=== PATIENT | male | born 1960 | race Caucasian/White ===

== ENCOUNTER 2019-03-28 20:45 | Inpatient (IN) | payer OTHER ==
[2019-03-28 21:09] LABS: Allen Test ACCEPTAB; MODE ROOM AIR; MetHgb Venous 0.2 %; Sample Type Blood venous; Site VENOUS LINE; Venous COHb 2.5 %; Venous Fraction OxyHgb 66.8 %; Venous Oxygen Sat 68.7 mmHG (55.0-75.0); Venous Total Hemglobin 15.5 g/dl
[2019-03-28] MEDS: SOD CHLORIDE 0.9% 750 ML IV (21:12)
[2019-03-28 21:18] LABS: ADD MAN DIFF? NO
[2019-03-28 21:21] LABS: BASOPHILS % 0.3 % (0.0-2.0); EOSINOPHILS % 0.5 % (0.0-7.0); HEMATOCRIT 43.2 % (42.0-52.0); HEMOGLOBIN 14.7 g/dl (14.0-18.0); LYMPHOCYTES % 33.2 % (15.0-51.0); MEAN CORPUSCULAR VOLUME 91.1 fl (82.0-101.0); MEAN PLATELET VOLUME 11.7 fl (7.4-10.4); MONOCYTE # 0.4 10^3/ul (0.3-0.9); MONOCYTES % 6.7 % (0.0-11.0); NEUTROPHIL # 3.5 10^3/ul (1.6-7.5); NEUTROPHILS % 58.6 % (39.0-77.0); PLATELET COUNT 153 10^3/UL (140-415); RED BLOOD COUNT 4.74 10^6/ul (4.70-6.10); RED CELL DISTRIBUTION WIDTH 11.9 % (11.5-14.5)
[2019-03-28 21:38] LABS: ANION GAP 31 (5-13); BLOOD UREA NITROGEN 22 mg/dl (7-20); CALCIUM 9.2 mg/dl (8.4-10.2); CARBON DIOXIDE 16 mmol/L (21-31); CHLORIDE 80 mmol/L (97-110); Estimated GFR 48 mL/min (>60); MAGNESIUM 2.1 mg/dl (1.7-2.5); PHOSPHORUS 4.3 mg/dl (2.5-4.9); POTASSIUM 3.5 mmol/L (3.5-5.1); SODIUM 127 mmol/L (135-144)
[2019-03-28 21:50] LABS: GLUCOSE 835 mg/dl (70-220)
[2019-03-28] MEDS ORDERED: NS + KCL 30 MEQ 1,000 ML IV (22:08)
[2019-03-28] MEDS ORDERED: D10/0.45% NACL + KCL 30 MEQ 1,000 ML IV ×2 (22:08→22:12)
[2019-03-28 22:22] LABS: ADD UMIC NO; UR ASCORBIC ACID NEGATIVE (NEGATIVE); UR BILIRUBIN (Dip) NEGATIVE (NEGATIVE); UR BLOOD (Dip) NEGATIVE (NEGATIVE); UR CLARITY CLEAR (CLEAR); UR COLOR STRAW (YELLOW); UR GLUCOSE (Dip) 3+ mg/dL (NEGATIVE); UR KETONES (Dip) 2+ mg/dL (NEGATIVE); UR LEUKOCYTE ESTERASE (Dip) NEGATIVE Leu/ul (NEGATIVE); UR NITRITE (Dip) NEGATIVE (NEGATIVE); UR SPECIFIC GRAVITY (Dip) 1.017 (1.003-1.030); UR TOTAL PROTEIN (Dip) NEGATIVE (NEGATIVE); UR UROBILINOGEN (Dip) NEGATIVE (NEGATIVE)
[2019-03-28] MEDS ORDERED: INSULIN REGULAR, HUMAN 100 UNIT in SOD CHLORIDE 0.9% 100 ML IV (22:30)
[2019-03-28] MEDS ORDERED: DEXTROSE 50% 50 ML SYRINGE IV ×4 (22:30)
[2019-03-28] MEDS ORDERED: LACTATED RINGER'S 750 ML IV (22:30)
[2019-03-28] MEDS: LACTATED RINGER'S 750 ML IV (22:34)
[2019-03-28 23:17] LABS: HEMOGLOBIN A1C > 14.0 % (0-5.9)
[2019-03-29 00:02] LABS: MODE ROOM AIR; MetHgb Venous 0.2 %; Sample Type Blood venous; Site VENOUS LINE; Venous COHb 1.6 %; Venous Fraction OxyHgb 57.7 %; Venous Oxygen Sat 58.8 mmHG (55.0-75.0); Venous Total Hemglobin 15.5 g/dl
[2019-03-29] MEDS: INSULIN REGULAR, HUMAN 100 UNIT in SOD CHLORIDE 0.9% 100 ML IV (00:06)
[2019-03-29] MEDS: NS + KCL 30 MEQ 1,000 ML IV (00:09)
[2019-03-29 00:46] LABS: ANION GAP 26 (5-13); BLOOD UREA NITROGEN 20 mg/dl (7-20); CALCIUM 8.9 mg/dl (8.4-10.2); CARBON DIOXIDE 18 mmol/L (21-31); CHLORIDE 83 mmol/L (97-110); CREATININE 1.27 mg/dl (0.61-1.24); Estimated GFR 58 mL/min (>60); PHOSPHORUS 3.8 mg/dl (2.5-4.9); POTASSIUM 3.5 mmol/L (3.5-5.1); SODIUM 127 mmol/L (135-144)
[2019-03-29 01:19] LABS: GLUCOSE 716 mg/dl (70-220)
[2019-03-29] MEDS ORDERED: NS + KCL 40 MEQ 1,000 ML IV (01:23)
[2019-03-29] MEDS ORDERED: NS + KCL 30 MEQ 1,000 ML IV (01:23)
[2019-03-29] MEDS: SODIUM PHOSPHATE 30 MMOL in SOD CHLORIDE 0.9% 250 ML IV (01:23)
[2019-03-29] MEDS: CALCIUM GLUCONATE 10% 2 GM in SOD CHLORIDE 0.9% 100 ML IVPB (01:23)
[2019-03-29] MEDS ORDERED: SOD CHLORIDE 0.9% 1,000 ML IV (01:23)
[2019-03-29] MEDS: CALCIUM GLUCONATE 10% 1 GM in SOD CHLORIDE 0.9% 100 ML IVPB (01:23)
[2019-03-29] MEDS: SODIUM PHOSPHATE 15 MMOL in SOD CHLORIDE 0.9% 250 ML IV (01:23)
[2019-03-29] MEDS ORDERED: DEXTROSE 10%/0.45% NACL 1,000 ML IV (01:23)
[2019-03-29] MEDS: MAGNESIUM SULFATE 2 GM/50 ML 50 ML IVPB (01:30)
[2019-03-29] MEDS ORDERED: POTASSIUM CHLORIDE 50 ML IVPB (01:30)
[2019-03-29] MEDS ORDERED: INSULIN REGULAR, HUMAN 100 UNIT in SOD CHLORIDE 0.9% 100 ML IV (01:30)
[2019-03-29] MEDS: MAGNESIUM SULFATE 1 GM/D5W 100 ML IVPB (01:30)
[2019-03-29] MEDS ORDERED: DEXTROSE 50% 50 ML SYRINGE IV ×4 (01:30→19:30)
[2019-03-29] MEDS: D10/0.45% NACL + KCL 30 MEQ 1,000 ML IV (02:21)
[2019-03-29 02:39] LABS: MODE ROOM AIR; MetHgb Venous 0.3 %; Sample Type Blood venous; Site VENOUS LINE; Venous COHb 1.2 %; Venous Fraction OxyHgb 78.4 %; Venous Oxygen Sat 79.6 mmHG (55.0-75.0); Venous Total Hemglobin 16.6 g/dl
[2019-03-29 04:41] LABS: ANION GAP 10 (5-13); BLOOD UREA NITROGEN 11 mg/dl (7-20); CARBON DIOXIDE 16 mmol/L (21-31); CHLORIDE 112 mmol/L (97-110); CREATININE 0.55 mg/dl (0.61-1.24); Estimated GFR > 60 mL/min (>60); GLUCOSE 272 mg/dl (70-220); MAGNESIUM 1.2 mg/dl (1.7-2.5); PHOSPHORUS 0.9 mg/dl (2.5-4.9); SODIUM 138 mmol/L (135-144)
[2019-03-29 04:48] LABS: POTASSIUM 1.9 mmol/L (3.5-5.1)
[2019-03-29 04:49] LABS: CALCIUM 5.4 mg/dl (8.4-10.2)
[2019-03-29 04:52] LABS: TROPONIN-I 0.025 ng/ml (0.000-0.120)
[2019-03-29] MEDS: D10/0.45% NACL + KCL 40 MEQ 1,000 ML IV (05:37)
[2019-03-29 06:16] LABS: MODE ROOM AIR; MetHgb Venous 0.8 %; Sample Type Blood venous; Site VENOUS LINE; Venous COHb 0.4 %; Venous Fraction OxyHgb 77.8 %; Venous Oxygen Sat 78.7 mmHG (55.0-75.0); Venous Total Hemglobin 6.5 g/dl
[2019-03-29 06:23] LABS: TROPONIN-I 0.018 ng/ml (0.000-0.120)
[2019-03-29 07:23] LABS: ANION GAP 4 (5-13); BLOOD UREA NITROGEN 5 mg/dl (7-20); CHLORIDE 131 mmol/L (97-110); CREATININE 0.24 mg/dl (0.61-1.24); Estimated GFR > 60 mL/min (>60); GLUCOSE 104 mg/dl (70-220); SODIUM 143 mmol/L (135-144)
[2019-03-29 07:34] LABS: CALCIUM 2.4 mg/dl (8.4-10.2); CARBON DIOXIDE 8 mmol/L (21-31); MAGNESIUM 0.6 mg/dl (1.7-2.5); PHOSPHORUS < 0.5 mg/dl (2.5-4.9); POTASSIUM < 1.0 mmol/L (3.5-5.1)
[2019-03-29] MEDS: POTASSIUM CHLORIDE (SR) 20 MEQ TAB PO ×4 (07:38→15:00)
[2019-03-29 07:48] LABS: ANION GAP 15 (5-13); BLOOD UREA NITROGEN 15 mg/dl (7-20); CALCIUM 8.9 mg/dl (8.4-10.2); CARBON DIOXIDE 22 mmol/L (21-31); CHLORIDE 96 mmol/L (97-110); CREATININE 0.71 mg/dl (0.61-1.24); Estimated GFR > 60 mL/min (>60); GLUCOSE 273 mg/dl (70-220); MAGNESIUM 1.8 mg/dl (1.7-2.5); PHOSPHORUS 1.7 mg/dl (2.5-4.9); SODIUM 133 mmol/L (135-144)
[2019-03-29 07:50] LABS: POTASSIUM 2.9 mmol/L (3.5-5.1)
[2019-03-29] MEDS: NPH, HUMAN INSULIN ISOPHANE 3ML VIAL SC ×3 (08:20→21:16)
[2019-03-29 10:21] LABS: MODE ROOM AIR; MetHgb Venous 0.2 %; Sample Type Blood venous; Site OTHER; Venous COHb 0.1 %; Venous Fraction OxyHgb 92.6 %; Venous Oxygen Sat 92.9 mmHG (55.0-75.0); Venous Total Hemglobin 12.6 g/dl
[2019-03-29 10:49] LABS: ANION GAP 8 (5-13); BLOOD UREA NITROGEN 12 mg/dl (7-20); CALCIUM 7.2 mg/dl (8.4-10.2); CARBON DIOXIDE 23 mmol/L (21-31); CHLORIDE 102 mmol/L (97-110); CREATININE 0.65 mg/dl (0.61-1.24); Estimated GFR > 60 mL/min (>60); MAGNESIUM 1.4 mg/dl (1.7-2.5); PHOSPHORUS 1.2 mg/dl (2.5-4.9); POTASSIUM 3.3 mmol/L (3.5-5.1); SODIUM 133 mmol/L (135-144)
[2019-03-29 10:53] LABS: GLUCOSE 441 mg/dl (70-220)
[2019-03-29] MEDS: INSULIN ASPART [NOVOLOG] 3 ML PEN SC ×4 (12:14→21:16)
[2019-03-29] MEDS: ACCU-CHEK XX ×5 (13:27→21:04)
[2019-03-29 13:52] LABS: ANION GAP 9 (5-13); BLOOD UREA NITROGEN 11 mg/dl (7-20); CALCIUM 7.7 mg/dl (8.4-10.2); CARBON DIOXIDE 21 mmol/L (21-31); CHLORIDE 104 mmol/L (97-110); CREATININE 0.62 mg/dl (0.61-1.24); Estimated GFR > 60 mL/min (>60); GLUCOSE 307 mg/dl (70-220); MAGNESIUM 1.6 mg/dl (1.7-2.5); PHOSPHORUS 1.4 mg/dl (2.5-4.9); POTASSIUM 3.9 mmol/L (3.5-5.1); SODIUM 134 mmol/L (135-144)
[2019-03-29] MEDS ORDERED: MAGNESIUM SULFATE 2 GM/50 ML 50 ML IVPB (15:00)
[2019-03-29 15:18] LABS: URINE BLOOD (Dip) POC Negative (NEGATIVE); URINE KETONES (Dip) POC 2+ (NEGATIVE); URINE LEUKOCYTE EST (Dip) POC Negative (NEGATIVE); URINE NITRITE (Dip) POC Negative (NEGATIVE); URINE TOTAL PROTEIN POC Negative (NEGATIVE)
[2019-03-29 15:18] LABS: URINE PH (Dip) POC 5.5 (5.0-8.5)
[2019-03-29] MEDS: SOD CHLORIDE 0.9% 1,000 ML IV (17:18)
[2019-03-29] MEDS: SODIUM PHOSPHATE 15 MMOL in SOD CHLORIDE 0.9% 250 ML IVPB (17:35)
[2019-03-29] MEDS ORDERED: GLUCOSE GEL 15 GRAM TUBE PO ×2 (19:30)
[2019-03-29] MEDS ORDERED: GLUCAGON 1 MG INJ IM (19:30)
[2019-03-29] MEDS ORDERED: GLUCOSE GEL 15 GRAM TUBE BUCCAL (19:30)
[2019-03-29] MEDS ORDERED: NPH, HUMAN INSULIN ISOPHANE 3ML VIAL SC (20:20)
[2019-03-29] MEDS: NACL 0.9% 3 ML SYG IV (21:18)
[2019-03-29] MEDS ORDERED: ONDANSETRON 4 MG INJ IV (21:30)
[2019-03-30] MEDS: ACCU-CHEK XX ×6 (01:30→21:31)
[2019-03-30] MEDS ORDERED: NPH, HUMAN INSULIN ISOPHANE 3ML VIAL SC (01:30)
[2019-03-30] MEDS: INSULIN ASPART [NOVOLOG] 3 ML PEN SC ×6 (01:42→21:30)
[2019-03-30] MEDS: SOD CHLORIDE 0.9% 1,000 ML IV ×3 (02:00→23:28)
[2019-03-30] MEDS: NACL 0.9% 3 ML SYG IV ×3 (06:05→22:08)
[2019-03-30 06:53] LABS: ADD MAN DIFF? NO
[2019-03-30 06:55] LABS: ABNORMAL IP MESSAGE 1; BASOPHILS % 0.4 % (0.0-2.0); EOSINOPHILS # 0.1 10^3/ul (0.0-0.5); HEMATOCRIT 39.4 % (42.0-52.0); HEMOGLOBIN 13.4 g/dl (14.0-18.0); LYMPHOCYTES # 1.5 10^3/ul (0.8-2.9); LYMPHOCYTES % 31.6 % (15.0-51.0); MEAN CORPUSCULAR HEMOGLOBIN 30.8 pg (29.0-33.0); MEAN CORPUSCULAR VOLUME 90.6 fl (82.0-101.0); MEAN PLATELET VOLUME 11.3 fl (7.4-10.4); MONOCYTE # 0.3 10^3/ul (0.3-0.9); MONOCYTES % 5.4 % (0.0-11.0); NEUTROPHIL # 2.9 10^3/ul (1.6-7.5); POSITIVE DIFF @See below; RED BLOOD COUNT 4.35 10^6/ul (4.70-6.10); RED CELL DISTRIBUTION WIDTH 12.2 % (11.5-14.5)
[2019-03-30 06:55] LABS: WHITE BLOOD COUNT 4.8 10^3/ul (4.8-10.8)
[2019-03-30 06:58] LABS: PLATELET COUNT 90 10^3/UL (140-415)
[2019-03-30 07:28] LABS: ANION GAP 13 (5-13); BLOOD UREA NITROGEN 7 mg/dl (7-20); CALCIUM 8.8 mg/dl (8.4-10.2); CARBON DIOXIDE 22 mmol/L (21-31); CHLORIDE 102 mmol/L (97-110); CREATININE 0.65 mg/dl (0.61-1.24); Estimated GFR > 60 mL/min (>60); GLUCOSE 198 mg/dl (70-220); MAGNESIUM 1.5 mg/dl (1.7-2.5); PHOSPHORUS 2.1 mg/dl (2.5-4.9); POTASSIUM 3.2 mmol/L (3.5-5.1); SODIUM 137 mmol/L (135-144)
[2019-03-30] MEDS: NPH, HUMAN INSULIN ISOPHANE 3ML VIAL SC (08:53)
[2019-03-30] MEDS: POTASSIUM CHLORIDE (SR) 20 MEQ TAB PO ×3 (12:58→21:07)
[2019-03-30] MEDS: ENOXAPARIN 40 MG/0.4 ML SYG SC (13:16)
[2019-03-30] MEDS: MAGNESIUM SULFATE 3 GM in DEXTROSE 5% 100 ML IVPB (14:11)
[2019-03-30] MEDS: POTASSIUM PHOSPHATE 15 MM in SOD CHLORIDE 0.9% 250 ML IVPB (14:12)
[2019-03-30] MEDS: INSULIN GLARGINE [LANTus] (100 UNITS/ML) SYG SC (21:30)
[2019-03-31] MEDS: NACL 0.9% 3 ML SYG IV (06:06)
[2019-03-31 07:17] LABS: ADD MAN DIFF? NO
[2019-03-31 07:31] LABS: WHITE BLOOD COUNT 3.7 10^3/ul (4.8-10.8)
[2019-03-31 07:31] LABS: ABNORMAL IP MESSAGE 1; BASOPHILS % 0.5 % (0.0-2.0); EOSINOPHILS % 1.1 % (0.0-7.0); HEMATOCRIT 36.7 % (42.0-52.0); HEMOGLOBIN 12.4 g/dl (14.0-18.0); LYMPHOCYTES # 1.4 10^3/ul (0.8-2.9); LYMPHOCYTES % 37.3 % (15.0-51.0); MEAN CORPUSCULAR HEMOGLOBIN 30.8 pg (29.0-33.0); MEAN CORPUSCULAR HGB CONC 33.8 g/dl (32.0-37.0); MEAN CORPUSCULAR VOLUME 91.1 fl (82.0-101.0); MEAN PLATELET VOLUME 11.2 fl (7.4-10.4); MONOCYTE # 0.3 10^3/ul (0.3-0.9); MONOCYTES % 7.7 % (0.0-11.0); NEUTROPHIL # 1.9 10^3/ul (1.6-7.5); NEUTROPHILS % 52.6 % (39.0-77.0); PLATELET COUNT 76 10^3/UL (140-415); POSITIVE DIFF @See below; RED BLOOD COUNT 4.03 10^6/ul (4.70-6.10); RED CELL DISTRIBUTION WIDTH 12.1 % (11.5-14.5)
[2019-03-31] MEDS: ACCU-CHEK XX ×3 (07:49→17:32)
[2019-03-31] MEDS: SOD CHLORIDE 0.9% 1,000 ML IV ×2 (07:49→17:30)
[2019-03-31 07:57] LABS: ALANINE AMINOTRANSFERASE 35 IU/L (13-69); ALBUMIN 2.8 g/dl (3.3-4.9); ALBUMIN/GLOBULIN RATIO 1.07; ALKALINE PHOSPHATASE 45 IU/L (42-121); ANION GAP 6 (5-13); ASPARTATE AMINO TRANSFERASE 23 IU/L (15-46); BILIRUBIN,INDIRECT 0.4 mg/dl (0-1.1); BILIRUBIN,TOTAL 0.4 mg/dl (0.2-1.3); BLOOD UREA NITROGEN 3 mg/dl (7-20); CALCIUM 8.1 mg/dl (8.4-10.2); CARBON DIOXIDE 26 mmol/L (21-31); CHLORIDE 103 mmol/L (97-110); CREATININE 0.55 mg/dl (0.61-1.24); Estimated GFR > 60 mL/min (>60); GLUCOSE 180 mg/dl (70-220); POTASSIUM 3.4 mmol/L (3.5-5.1); SODIUM 135 mmol/L (135-144); TOTAL PROTEIN 5.4 g/dl (6.1-8.1)
[2019-03-31] MEDS: INSULIN ASPART [NOVOLOG] 3 ML PEN SC ×4 (08:08→17:29)
[2019-03-31] MEDS: ENOXAPARIN 40 MG/0.4 ML SYG SC ×2 (08:17→08:53)
[2019-03-31] MEDS: POTASSIUM CHLORIDE (SR) 20 MEQ TAB PO (09:25)
[2019-04-01] MEDS ORDERED: INSULIN ASPART [NOVOLOG] 3 ML PEN SC ×2 (07:55→11:50)
== END 2019-03-31 19:17 | disposition home health service (06) | DRG 639 ==
LOC: E/R 20:45 → TEL 03-29 06:15
PROC: 4A133R1 Monitoring of Arterial Saturation, Peripheral, Percutaneous Approach (ICD-10-PCS; principal; 2019-03-28)
DX: E11.10 Type 2 diabetes mellitus with ketoacidosis without coma (principal); E78.5 Hyperlipidemia, unspecified; I10 Essential (primary) hypertension; F17.210 Nicotine dependence, cigarettes, uncomplicated; Z88.0 Allergy status to penicillin
CPT/HCPCS: 36415; 80048; 80053; 81003; 82803; 82962; 83036; 83735; 84100; 84484; 85025; 93005; 96361; 96365; 96366; 96368; 99285-25

== ENCOUNTER 2019-04-24 15:15 | Emergency (ER) | payer OTHER | END 2019-04-24 15:55 | disposition home or self-care (01) | LOC: E/R 15:15 | DX: I10 Essential (primary) hypertension (principal); J44.9 Chronic obstructive pulmonary disease, unspecified; F17.210 Nicotine dependence, cigarettes, uncomplicated; E11.9 Type 2 diabetes mellitus without complications; Z79.4 Long term (current) use of insulin; Z79.82 Long term (current) use of aspirin | CPT/HCPCS: 99282; Z7502 ==